=== PATIENT | male | born 1965 | race African-American/Black ===

== ENCOUNTER 2016-09-16 05:22 | Day surgery (SDC) | payer BC ==
[2016-09-10 12:23] LABS: BASOPHILS 0.4 %; BASOPHILS ABSOLUTE 0.03 10/3/uL (0.0-0.16); EOSINOPHILS 2.8 %; EOSINOPHILS ABSOLUTE 0.22 10/3/uL (0.0-0.53); HEMATOCRIT 40.9 % (40.0-51.0); HEMOGLOBIN 13.6 g/dL (13.6-17.8); IMMATURE GRANULOCYTES 0.1 %; IMMATURE GRANULOCYTES ABSOLUTE 0.01 10/3/uL (0.0-0.11); LYMPHOCYTES 27.4 %; LYMPHOCYTES ABSOLUTE 2.16 10/3/uL (0.67-4.30); MEAN CORPUS HGB CONC 33.3 g/dL (32.0-36.0); MEAN CORPUSCULAR HEMOGLOB 28.5 pg (26.0-34.0); MEAN PLATELET VOLUME 10.5 fL (9.2-13.0); MONOCYTES ABSOLUTE 0.55 10/3/uL (0.21-1.20); NEUTROPHILS 62.3 %; PLATELET COUNT 248 10/3/uL (150-400); RBC DISTRIBUTION WIDTH 13.9 % (12.0-16.0); RED CELL COUNT 4.77 10/6/uL (4.7-6.1); WHITE BLOOD CELLS 7.9 10/3/uL (4.5-10.5)
[2016-09-10 12:28] LABS: MANUAL DIFF NO %; MEAN CORPUSCULAR VOLUME 85.7 fL (80-100)
[2016-09-10 12:38] LABS: ALBUMIN 3.9 G/DL (3.5-5.0); BUN (BLOOD UREA NITROGEN) 11 MG/DL (6-23); CALCIUM, SERUM 9.6 MG/DL (8.5-10.4); CHLORIDE, SERUM 106 MMOL/L (96-112); CO2 (CARBON DIOXIDE) 30 MMOL/L (24-34); CREATININE 0.89 MG/DL (0.70-1.30); GFR AFRICAN AMERICAN 115 ML/MIN (>=60); GFR NON AFRICAN AMERICAN 99 ML/MIN (>=60); POTASSIUM, SERUM 3.9 MMOL/L (3.5-5.3); SGOT(AST) 17 U/L (5-40); SGPT(ALT) 32 U/L (5-65); SODIUM, SERUM 143 MMOL/L (135-148); TOTAL BILIRUBIN 0.3 MG/DL (0-1.2); TOTAL PROTEIN 7.9 G/DL (6.0-8.5)
[2016-09-10 12:39] LABS: ALKALINE PHOSPHATASE 99 U/L (45-117); GLUCOSE, SERUM 187 MG/DL (60-99)
--- NOTE | ~2016-09-16 | PREOPHP ---
PreOp History and Physical [address] [place]. [address] NAME: GLORIA VALLE : 65 STATUS : [facility]#: [id number] AGE: 51 ADM/REG DATE : 09/16/16 MR#: [id number] REPORT SERV DATE: 09/26/16 DICTATED BY: EVAN ROBLERO III DATE: 08/13/16 REPORT STATUS : Draft TRANSCRIBED BY: JOSUÉ DATE: 08/13/16 HISTORY OF PRESENT ILLNESS: This 51-year-old male comes to the operating room for open repair of a symptomatic large recurrent right inguinal hernia. The patient has a right inguinal hernia, which is symptomatic in terms of local pain and discomfort. The patient has had no nausea, vomiting, or obstructive symptoms. He has had this hernia repaired in the past. He comes now for open repair of this recurrent right inguinal hernia. PAST MEDICAL HISTORY: 1. Hypertension. 2. Obesity. 3. Insulin dependent diabetes mellitus. 4. Asthma. ALLERGIES: NONE. MEDICATIONS: Metformin, montelukast, lovastatin, lisinopril, and Toujeo. FAMILY HISTORY: Remarkable for diabetes. SOCIAL HISTORY: The patient is not . He works and lives locally. He has a history of alcohol use. He has no history of tobacco use. PHYSICAL EXAMINATION: GENERAL: This is a large obese male, in no acute distress. He is alert and oriented x3 HEENT: Unremarkable. Cranial nerves 2 through 12 are normal. LUNGS: Clear. CARDIAC: Normal. ABDOMEN: He has a large obese, protuberant abdomen. The abdomen is soft and nontender. : In the right groin there is a large right inguinal hernia which is reducible. The left groin is normal. EXTREMITIES: Normal. ASSESSMENT: 1. This is a 51-year-old male with symptomatic recurrent right inguinal hernia. 2. Obesity. 3. Hypertension. 4. Insulin dependent diabetes mellitus. 5. Asthma. PLAN: The patient comes to the operating room now for open repair of this recurrent right inguinal hernia. This procedure, the risks, benefits, and alternatives, including but not limited to the risk for bleeding, infection, pain, swelling, scarring, deformity to the area, seroma formation, hematoma formation, recurrence of the hernia, nerve injury, chronic paresthesia or pain in the thigh, scrotum, or groin, chronic neuralgia or neuroma, and unforeseen complications including deep venous thrombosis, pulmonary embolus, myocardial PreOp History and Physical [address] [place]. [address] NAME: GLORIA VALLE : 65 STATUS : [facility] PAT#: [id number] AGE: 51 ADM/REG DATE : 09/16/16 MR#: [id number] REPORT SERV DATE: 09/26/16 DICTATED BY: EVAN ROBLERO III DATE: 08/13/16 REPORT STATUS : Draft TRANSCRIBED BY: JOSUÉ DATE: 08/13/16 infarction, stroke, pneumonia, and have been explained to the patient prior to the surgery. The expected length of recovery has been explained. The fact that he is at increased risk for recurrence of the hernia due to the size and the fact that this is a recurrent hernia, has been explained. The patient's questions have been answered. He understands the risks and agrees to the surgery as planned. JORGE/JOSUÉ Evan Roblero III, M.D. / [id number]
--- NOTE | ~2016-09-16 | OP ---
Record Of Operation [facility] [address] [place]. [address] NAME: GLORIA VALLE : 65 STATUS : [facility]#: [id number] AGE: 51 ADM/REG DATE : 09/16/16 MR#: [id number] REPORT SERV DATE: 09/18/16 DICTATED BY: EVAN ROBLERO III DATE: 09/18/16 REPORT STATUS : Draft TRANSCRIBED BY: MODAidan DATE: 09/18/16 DATE OF PROCEDURE: 09/16/2016 PREOPERATIVE DIAGNOSIS: Recurrent symptomatic right inguinal hernia. POSTOPERATIVE DIAGNOSIS: Recurrent symptomatic right inguinal hernia, chronically incarcerated with the omentum incarcerated in the scrotum. PROCEDURE: Open Raffaele tension-free repair of recurrent incarcerated right inguinal hernia with partial omentectomy. SURGEON: Evan Roblero M.D. ANESTHESIA: General with intubation. COMPLICATIONS: None. ESTIMATED BLOOD LOSS: Less than 5 mL. SPECIMENS: A portion of incarcerated omentum. DRAINS: None. LAP AND SPONGE COUNT: Correct x3. BRIEF HISTORY: This 51-year-old male presented with a recurrent symptomatic right inguinal hernia. It was felt that repair of the hernia was indicated. This procedure, the risks, benefits, and alternatives, including but not limited to the risk for bleeding, infection, pain, swelling, scarring, deformity to the area, seroma formation, hematoma formation, recurrence of the hernia, nerve injury, chronic paresthesia, pain in the thighs, scrotum, or groin, chronic neuralgia or neuroma, and unforeseen complications including deep venous thrombosis, pulmonary embolus, myocardial infarction, stroke, pneumonia, and were fully explained to the patient prior to the surgery. The expected length of recovery was explained. The patient is extremely obese, and the fact that he would be at increased risk for recurrence of the hernia for this reason was explained, as well as work activities which will require heavy lifting. The patient had questions, which were answered. He fully understood the risks and agreed to the surgery as planned. FINDINGS: The patient had a large recurrent direct right inguinal hernia. A large amount of omentum was chronically incarcerated within the scrotum. It was necessary to amputate a portion of the omentum in order to reduce the hernia. A Prolene mesh was used for repair of the hernia on the fascia level as well as a Prolene mesh plug. DESCRIPTION OF PROCEDURE: After being properly identified, and after discussing the risks and benefits of the surgery with the patient and family again in the preoperative area, and after identifying the hernia with him in the preoperative area, the patient was taken to the Record Of Operation [address] [address] NAME: GLORIA VALLE : 65 STATUS : [facility]#: [id number] AGE: 51 ADM/REG DATE : 09/16/16 MR#: [id number] REPORT SERV DATE: 09/18/16 DICTATED BY: EVAN ROBLERO III DATE: 09/18/16 REPORT STATUS : Draft TRANSCRIBED BY: JOSUÉ DATE: 09/18/16 operating room, placed in supine position on the operating room table. General anesthesia was administered. He was intubated without difficulty. The abdomen and groins were prepped and draped sterilely in the usual fashion. After an appropriate "time-out" per [employer] standards, an oblique incision was made in the right groin, over the previous incision, from the pubic tubercle medially towards the anterior and superior iliac spine laterally. The incision was continued through the subcutaneous tissue. Hemostasis was controlled with the cautery. The external oblique fascia was identified. This fascia was defined and opened along the direction of its fibers, so as to open the external inguinal ring. There was extensive scarring in the inguinal canal. Using sharp dissection, the ilioinguinal and genitofemoral nerves were identified. These were carefully isolated and protected to one side. The patient noted to have a fairly large direct hernia protruding through the floor of the canal. The spermatic cord was skeletonized, and a Amber drain was placed beneath it. The patient's anatomy was somewhat difficult due to his large size and obesity. Using careful sharp dissection, the hernia was dissected free from the scrotum. There was a large amount of omentum chronically incarcerated within the scrotum. This was carefully reduced from the scrotum back into the inguinal region. This was carefully reduced then back into the abdominal cavity. It was difficult to reduce all the omentum back into the abdominal cavity because of the patient's obesity. For this reason, a partial omentectomy was performed. The omentum which was divided was divided between the [place] clamps, cutting and tying with 2-0 silk sutures. This portion of the omentum was sent for permanent pathology. The remainder of the omentum which was not amputated was reduced back in the abdominal cavity. The floor of the canal was then repaired using a Prolene mesh plug. This was placed in the defect in the floor of the canal. It was secured around the edges of the defect with interrupted 3-0 silk sutures. This resulted in good closure of the defect. The floor of the canal was then reapproximated with interrupted 3-0 silk sutures which were placed between the shelving edge of the inguinal ligament laterally, and the internal oblique and transversalis fascia medially. This fascia came together nicely with minimal tension. A Prolene mesh was then placed over the floor of the canal which had been closed. This was a Prolene mesh, which was cut to the appropriate size. It was secured to the floor of the canal with interrupted 2-0 silk sutures. A slit was made in the mesh laterally to incorporate the spermatic cord. Upon completion of this, the mesh lay nicely over the repaired floor, it was not twisted or kinked in anyway, and it was not under any tension. Hemostasis was assured. The external oblique fascia was closed with a running 2-0 silk suture. Subcutaneous tissue was closed with a running 3-0 chromic suture. The skin was closed with a running subcuticular 4-0 Monocryl stitch. The incision was injected with 0.5% Marcaine dressings were applied, and the anesthesia was reversed. The patient was taken to the recovery room in stable condition. He tolerated the procedure well. His family was informed the results of the surgery. The patient will be discharged when stable and comfortable. His family was advised that he should keep his wound clean and dry for [address] hours[address] He should not drive for three to four days after the surgery or while using narcotics, and that he should resume his usual medications. They are strongly advised that he should not perform any heavy lifting for six to eight weeks. He was asked to return in two weeks for followup or sooner if any fever, chills, wound drainage, or other problems prior to that time. He was given a prescription for Percocet 7.5 one t.i.d., #15 as needed [address] Of [address] [facility] [place]. [address] NAME: GLORIA VALLE : 65 STATUS : [facility]#: [id number] AGE: 51 ADM/REG DATE : 09/16/16 MR#: [id number] REPORT SERV DATE: 09/18/16 DICTATED BY: EVAN ROBLERO III DATE: 09/18/16 REPORT STATUS : Draft TRANSCRIBED BY: MODL DATE: 09/18/16 for pain, which he was advised not to use while driving. I explained to the patient's that he is at high risk for recurrence of this hernia due to his large size and obesity and the size of this hernia. RHRafy/JOSUÉ Eavn Roblero III, M.D. / [id number] CC: Jossue Mack III, M.D.
[~2016-09-16 05:22] MED LIST: GLUCOPHAGE1000 MG PO; MEVACOR10 MG PO; PRIN20 PO; PROAIR HFA INH; SINGULAIR1 PO; TRESIBA FL100 UNIT/1 SC
== END 2016-09-16 14:04 | disposition home or self-care (01) ==
LOC: SDC 05:22
PROVIDERS: Surgery
PROC: 0YU50JZ Supplement Right Inguinal Region with Synthetic Substitute, Open Approach (ICD-10-PCS; 2016-09-16)
PROC: 0DBS0ZZ (ICD-10-PCS; principal; 2016-09-16 06:45)
DX: K40.91 Unilateral inguinal hernia, without obstruction or gangrene, recurrent (principal); I10 Essential (primary) hypertension; E11.9 Type 2 diabetes mellitus without complications; E78.00 Pure hypercholesterolemia, unspecified; M19.90 Unspecified osteoarthritis, unspecified site; E66.01 Morbid (severe) obesity due to excess calories; Z68.39 Body mass index [BMI] 39.0-39.9, adult; Z79.4 Long term (current) use of insulin; Z79.84 Long term (current) use of oral hypoglycemic drugs; Z79.899 Other long term (current) drug therapy; Z98.890 Other specified postprocedural states
CPT/HCPCS: 71020; 80053; 82962; 85025; 88307; 93005; A9270-GY; C1781; J0690; J1170; J2250; J2270; J2405; J2710; J3010